=== PATIENT | male | born 1950 | race Caucasian/White ===

== ENCOUNTER 2017-04-02 04:28 | Emergency (ER) | payer BC ==
--- NOTE | ~2017-04-02 | CT71 ---
[facility] A Service of [facility] RADIOLOGY TEXT RESULTS PATIENT: DARLENE NIXON LOCATION: [facility] : 48 UNIT #: [id number] AGE: [address]: Luther Barry DO SEX: M ORDER DR: [id number] [place], [place] [address] [id number] E MR#: [id number] Acc #: [id number] NAME: DARLENE NIXON : 1950 SEX: M STUDY DATE/TIME: 04/02/2017 8:12 UNIT: [facility] ROOM: STUDY DESCRIPTION: CT Head Wo Contrast Attending Physician: Luther Barry D.O. Ordering Physician: Luther Barry D.O. MEDICAL IMAGING REPORT This report is preliminary unless electronic signature is present EXAM CT head without contrast, 04/02/2017. HISTORY 66-year-old male with headache, status post fall today. COMPARISON None. TECHNIQUE Routine, unenhanced, axial images performed through the brain. This CT exam was performed with one or more of the following radiation dose reduction techniques: automatic exposure control, adjustment of mA and/or kV according to patient size, and iterative reconstruction. FINDINGS No hemorrhage, acute infarction, mass lesion, or abnormal extraaxial fluid collection. No midline shift or focal mass effect. Ventricular system normal in size and configuration. Mild generalized atrophy. Left frontal scalp soft tissue swelling. No acute bony abnormality. Visualized paranasal sinuses and mastoid air cells are clear. IMPRESSION 1. No acute intracranial abnormality. 2. Left frontal scalp soft tissue swelling. No acute bony abnormality. Dictated by... Esteban Delgadillo M.D. THIS IS AN ELECTRONICALLY VERIFIED REPORT [facility] A Service [facility] RADIOLOGY TEXT RESULTS PATIENT: DARLENE NIXON LOCATION: [facility] : 48 UNIT #: [id number] AGE: [address]: Luther Barry DO SEX: M ORDER DR: Esteban Delgadillo M.D. at 04/03/2017 6:21 AM Nikita TD: 04/02/2017 09:41 JOB #: [id number] MEDICAL IMAGING REPORT Page 1 of 1 COPY
--- NOTE | ~2017-04-02 | CT52 ---
[facility] A Service of [facility] RADIOLOGY TEXT RESULTS PATIENT: DARLENE NIXON LOCATION: [facility] : 48 UNIT #: [id number] AGE: [address]: Luther Barry DO SEX: M ORDER DR: [id number] [facility] [address] [place], [place] [address] [id number] E MR#: [id number] Acc #: [id number] NAME: DARLENE NIXON : 1950 SEX: M STUDY DATE/TIME: 04/02/2017 8:16 UNIT: [facility] ROOM: STUDY DESCRIPTION: CT Cervical Spine Wo Cont Attending Physician: Luther Barry D.O. Ordering Physician: Luther Barry D.O. MEDICAL IMAGING REPORT This report is preliminary unless electronic signature is present EXAM CT cervical spine without contrast, 04/02/2017. HISTORY 66-year-old male with neck pain status post fall today. COMPARISON None TECHNIQUE Helical scan performed through the cervical spine without IV contrast. Coronal and sagittal reformatted images. This CT exam was performed with one or more of the following radiation dose reduction techniques: automatic exposure control, adjustment of mA and/or kV according to patient size, and iterative reconstruction. FINDINGS No evidence of acute fracture or subluxation. Vertebral body heights and alignment are normally maintained. Prevertebral soft tissues are normal. Atlantoaxial relationship is normal. Cervicothoracic junction is unremarkable. There are moderate degenerative disc changes at C5-6 and C6-7. Small posterior disc protrusions at these levels produce minimal central canal stenosis. Mild multilevel facet degeneration. Paravertebral soft tissues are unremarkable. Lung apices unremarkable. IMPRESSION 1. No acute cervical spine injury. 2. Moderate degenerative disc changes at C5-6 and C6-7 with small posterior disc protrusions producing minimal central canal stenosis at these levels. Mild multilevel facet degeneration. [facility] A Service of [facility] RADIOLOGY TEXT RESULTS PATIENT: DARLENE NIXON LOCATION: [facility] : 48 UNIT #: [id number] AGE: [address]: Luther Barry DO SEX: M ORDER DR: Dictated by... Esteban Delgadillo M.D. THIS IS AN ELECTRONICALLY VERIFIED REPORT Esteban Delgadillo M.D. at 04/03/2017 6:21 AM CAROL/mahsa TD: 04/02/2017 09:45 JOB #: [id number] MEDICAL IMAGING REPORT Page 1 of 1 COPY
== END 2017-04-02 09:35 | disposition home or self-care (01) ==
LOC: CED 04:28
DX: S09.90XA Unspecified injury of head, initial encounter (principal); S01.81XA Laceration without foreign body of other part of head, initial encounter; W01.198A Fall on same level from slipping, tripping and stumbling with subsequent striking against other object, initial encounter; Y92.9 Unspecified place or not applicable
CPT/HCPCS: 12011; 70450; 72125; 99284